=== PATIENT | female | born 1995 | race Caucasian/White ===

== ENCOUNTER 2019-07-04 14:15 | Emergency (ER) | payer OTHER ==
[2019-07-04 14:33] VITALS: BP 120/89
--- NOTE | 2019-07-04 14:41 | UC ---
UC General HPI - HPI Summary HPI Summary: wednesday, pt had some n/v. last pm developed a sore throat. this am, some diarrhea. also notes some while inside her R cheek. - History of Current Complaint Chief Complaint: UCGeneralIllness Stated Complaint: SORE THROAT DIARRHEA Time Seen by Provider: 07/04/19 14:35 Hx Obtained From: Patient Hx Last Menstrual Period: 06/03/19 Onset/Duration: Gradual Onset Timing: Constant Pain Intensity: 7 Associated Signs & Symptoms: Negative: Abdominal Pain, Fever - Allergy/Home Medications Allergies/Adverse Reactions: Allergies Allergy/AdvReac Type Severity Reaction Status Date / Time Penicillins Allergy Vomiting Verified 03/21/19 13:30 sulfamethoxazole Allergy Swelling Verified 03/21/19 13:30 [From Bactrim] Of Face,Lips,& Throat Tetracyclines Allergy Vomiting Verified 03/21/19 13:30 trimethoprim [From Bactrim] Allergy Swelling Verified 03/21/19 13:30 Of Face,Lips,& Throat adhesives Allergy Rash And Uncoded 03/21/19 13:30 Itching environmental Allergy Eyes Uncoded 03/21/19 13:30 Itchy/Swollen/Red/Watery NSAIDS Allergy kidney Uncoded 03/21/19 13:30 problems Home Medications: Home Medications Venlafaxine CAP (NF) [Effexor CAP (NF)] 75 mg PO DAILY 07/04/19 [History Confirmed 07/04/19] PMH/Surg Hx/FS Hx/Imm Hx Psychological History: Depression - Surgical History Surgical History: Yes Surgery Procedure, Year, and Place: Ureter stent or stents - Family History Known Family History: Negative: Diabetes - Social History Alcohol Use: Rare Substance Use Type: Excessive Caffeine Smoking Status (MU): Former Smoker When Did the Patient Quit Smoking/Using Tobacco: 02/23/19 Review of Systems All Other Systems Reviewed And Are Negative: No Constitutional: Negative: Fever, Fatigue ENT: Positive: Sore Throat. Negative: Ear Ache, Sinus Congestion Respiratory: Negative: Shortness Of Breath, Cough Gastrointestinal: Negative: Abdominal Pain Genitourinary: Negative: Dysuria Physical Exam Triage Information Reviewed: Yes Appearance: Well-Appearing Vital Signs: Initial Vital Signs Temp 98.5 F 07/04/19 14:25 Pulse 89 07/04/19 14:25 Resp 16 07/04/19 14:25 BP 120/89 07/04/19 14:25 Pulse Ox 100 07/04/19 14:25 Vital Signs Reviewed: Yes Eyes: Positive: Conjunctiva Clear ENT: Positive: Pharyngeal erythema, TMs normal, Other - White palques inside R cheek that scrape off on tongue depressor.. Negative: Nasal congestion, Nasal drainage Neck: Positive: Supple, Nontender, No Lymphadenopathy Respiratory: Positive: Lungs clear, Normal breath sounds Cardiovascular: Positive: RRR, No Murmur Abdomen Description: Positive: Nontender, No Organomegaly, Soft Bowel Sounds: Positive: Present Neurological: Positive: Alert Psychological: Positive: Age Appropriate Behavior Skin Exam: Normal Diagnostics - Laboratory Lab Results: rapid strep=negative. [id number] Course/Dx - Diagnoses Provider Diagnosis: Pharyngitis, Thrush, oral, Diarrhea Discharge ED - Sign-Out/Discharge Documenting (check all that apply): Patient Departure All imaging exams completed and their final reports reviewed: No Studies - Discharge Plan Condition: Stable Disposition: HOME Prescriptions: Nystatin SUSPENSION* 500,000 units .SEE ORDER QID 7 Days #140 ml Patient Education Materials: Pharyngitis (ED), Oral Candidiasis (ED), Acute Diarrhea (ED) Referrals: FABRICIO Grier [Medical Doctor] - 5 Days - Billing Disposition and Condition Condition: STABLE Disposition: Home
== END 2019-07-04 15:10 | disposition home or self-care (01) ==
LOC: UCCORT 14:15
DX: J02.9 Acute pharyngitis, unspecified (principal); B37.0 Candidal stomatitis; R19.7 Diarrhea, unspecified; Z88.0 Allergy status to penicillin; Z88.1 Allergy status to other antibiotic agents; F32.9 Major depressive disorder, single episode, unspecified; Z87.891 Personal history of nicotine dependence
CPT/HCPCS: 87651; 99212; G0463

== ENCOUNTER 2019-10-22 11:26 | Emergency (ER) | payer OTHER ==
[2019-10-22 12:03] VITALS: BP 132/97
--- NOTE | 2019-10-22 12:15 | UC ---
UC General HPI - HPI Summary HPI Summary: Patient is 24 year old , who present today to the urgent care for confirming . Today she reports that she woke up w/ nausea today; emesis x1 this morning- nonbilious nonbloody. Able to keep fluids down. Yesterday took 2 pregnacy tests that came back positive. LMP 09/17/19. Also some generalized abdominal pain. She has a history of anxiety and depression and a month ago , her primary care doctor changed dose of Effexor from 37.5 to 75 mg and that did not work very well for her and she felt like hurting herself at that time so the medication was returned to 37.5 mg. Upon further discussions overall she feels that she is feeling sad but has no thoughts of hurting herself or hurting someone else. She is wearing here with her fianc and she reports that a few months back there were trying to get but not at this time. She took the last dose of Effexor today morning - History of Current Complaint Chief Complaint: UCRespiratory Stated Complaint: VERIFICATION Time Seen by Provider: 10/22/19 12:03 Hx Obtained From: Patient Hx Last Menstrual Period: 09/17/19 Pain Intensity: 0 - Allergy/Home Medications Allergies/Adverse Reactions: Allergies Allergy/AdvReac Type Severity Reaction Status Date / Time Penicillins Allergy Vomiting Verified 10/22/19 11:54 sulfamethoxazole Allergy Swelling Verified 10/22/19 11:54 [From Bactrim] Of Face,Lips,& Throat Tetracyclines Allergy Vomiting Verified 10/22/19 11:54 trimethoprim [From Bactrim] Allergy Swelling Verified 10/22/19 11:54 Of Face,Lips,& Throat adhesives Allergy Rash And Uncoded 10/22/19 11:54 Itching environmental Allergy Eyes Uncoded 10/22/19 11:54 Itchy/Swollen/Red/Watery NSAIDS Allergy kidney Uncoded 10/22/19 11:54 problems Home Medications: Home Medications ALPRAZolam TAB* [Xanax TAB*] 0.25 mg PO Q6H PRN 10/22/19 [History Confirmed ] Cyclobenzaprine TAB* [Flexeril 10 MG TAB*] 1 tab QPM PRN 10/22/19 [History Confirmed 10/22/19] PMH/Surg Hx/FS Hx/Imm Hx - Additional Past Medical History Additional PMH: Past Medical History : Limited, depression, renal stone, polycystic kidney and ovarian disease Past Surgical History: kidney stones, polycystic kidneys and ovaries, migraine, possible brain aneurysm, vertigo, anxiety,depression 06/12/1994-[id number] brain aneurysm Family History : non contributory Social History : Rare alcohol, former smoker, no drug use. Previously Healthy: Yes - Surgical History Surgical History: Yes Surgery Procedure, Year, and Place: Ureter stent or stents - Family History Known Family History: Positive: Non-Contributory Negative: Diabetes - Social History Alcohol Use: Rare Substance Use Type: None Smoking Status (MU): Former Smoker When Did the Patient Quit Smoking/Using Tobacco: 02/23/19 Review of Systems All Other Systems Reviewed And Are Negative: Yes Constitutional: Positive: Negative Skin: Positive: Negative Eyes: Positive: Negative ENT: Positive: Negative Respiratory: Positive: Negative Cardiovascular: Positive: Negative Gastrointestinal: Positive: Abdominal Pain, Vomiting - One episode of nonbilious nonbloody vomiting, Nausea Genitourinary: Positive: Negative Motor: Positive: Negative Neurovascular: Positive: Negative Musculoskeletal: Positive: Negative Neurological: Positive: Negative Psychological: Positive: Negative Is Patient Immunocompromised?: No Physical Exam - Summary Physical Exam Summary: Physical Exam: Const: Appears well. No signs of apparent distress present. Alert and oriented x 3. Musculo: Walks with a normal gait. Head/Face: Atraumatic, normocephalic on inspection. Eyes: EOMI and PERRLA in both eyes. Conjunctivae clear. No discharge noted ENT: Hearing normal, TM normal appearing on the left side and, wax noted on the right side but slight visualization of the right tympanic membrane appears normal No tenderness to palpation on maxillary and frontal sinus. No pharyngeal erythema or exudates . Uvula is midline. No cervical or submandibular lymphadenopathy noted. Respiratory: Respirations are unlabored. Lungs clear to auscultation bilaterally, no wheezing , rhonchi or rales noted . CVS: Regular rate and Rhythm, S1S2 normal , no murmurs identified. Extremities: Peripheral circulation is grossly normal. Pulses 2+ Abdomen : Soft mild generalized tenderness is noted throughout abdomen, nondistended , Bowel sounds present . No guarding , rebound tenderness or rigidity noted. Skin: No lesions or rash located on the upper extremities or on the lower extremities. Neuro: Cranial nerves II to XII intact, motor and sensory intact. DTR Intact bilaterally. Mood is normal. Affect is normal. Triage Information Reviewed: Yes Vital Signs: Initial Vital Signs Temp 98 F 10/22/19 11:56 Pulse 98 10/22/19 11:56 Resp 16 10/22/19 11:56 BP 132/97 10/22/19 11:56 Pulse Ox 100 10/22/19 11:56 Vital Signs Reviewed: Yes Course/Dx - Course Course Of Treatment: Urine test: Positive She is currently on Effexor and we discussed that it's a category C medication during . She took her dose in the morning today . Currently she did not have any thoughts of suicidal or homicidal ideations. She feels that she is status slightly sad. We discussed that she should call her primary care doctor today to schedule an appointment with her tomorrow to discuss about the medications before taking the next dose tomorrow. We also discussed that she should follow-up with her [employer]PUTER SCIENCE TE[employer]ER, Dr. Pathak in [place]. We discussed that her generalized abdominal pain with some nausea can be secondary to , viral gastroenteritis , or her anxiety. We discussed that she will monitor for any worsening of her symptoms for now. She expressed understanding - Diagnoses Provider Diagnosis: test positive Discharge ED - Sign-Out/Discharge Documenting (check all that apply): Patient Departure All imaging exams completed and their final reports reviewed: No Studies - Discharge Plan Condition: Stable Disposition: HOME Patient Education Materials: (ED) Forms: *Work Release Referrals: No Primary Care Phys,NOPCP [Primary Care Provider] - Additional Instructions: Your urine test is positive Follow up with your primary care doctor( Dr. Abeba Rob) tomorrow in regards to the effexor. Please call your COMPUTER SCIENCE TEACHER doctor, Dr. Pathak in [place] to set up an appointment. He is Patients blood pressure slightly high in Urgent care today , plan follow up with PCP for better control Return to Urgent care / ER if symptoms get worse. - Billing Disposition and Condition Condition: STABLE Disposition: Home
== END 2019-10-22 12:44 | disposition home or self-care (01) ==
LOC: UCCORT 11:26
DX: Z32.01 Encounter for pregnancy test, result positive (principal); Z87.891 Personal history of nicotine dependence; Z88.6 Allergy status to analgesic agent; Z91.09 Other allergy status, other than to drugs and biological substances; Z88.2 Allergy status to sulfonamides; Z88.1 Allergy status to other antibiotic agents; Z88.0 Allergy status to penicillin
CPT/HCPCS: 84702; 99211; G0463

== ENCOUNTER 2019-12-02 11:02 | Emergency (ER) | payer OTHER ==
[2019-12-02 12:18] VITALS: BP 127/84
--- NOTE | 2019-12-02 12:53 | UC ---
Throat Pain/Nasal Harish HPI - HPI Summary HPI Summary: Pt presents with c/o "facial pain", concern for dental abscess or sinus infection. Pt is 11 weeks , c/o weakness and "feeling awful", is currently being treated for C-Difficile and is taking Flagyl. Pt states she still has diarrhea. - History of Current Complaint Chief Complaint: UCGeneralIllness Stated Complaint: SINUSES/CURTIS/TOOTH COMP Hx Obtained From: Patient Hx Last Menstrual Period: 09/17/19 ?: Yes - 11 weeks Onset/Duration: Sudden Onset, Still Present, Worse Since Severity: Moderate Pain Intensity: 6 Associated Signs & Symptoms: Positive: Sinus Discomfort - Epiglottits Risk Factors Epiglottis Risk Factors: Negative - Allergies/Home Medications Allergies/Adverse Reactions: Allergies Allergy/AdvReac Type Severity Reaction Status Date / Time Penicillins Allergy Vomiting Verified 12/02/19 12:18 sulfamethoxazole Allergy Swelling Verified 12/02/19 12:18 [From Bactrim] Of Face,Lips,& Throat Tetracyclines Allergy Vomiting Verified 12/02/19 12:18 trimethoprim [From Bactrim] Allergy Swelling Verified 12/02/19 12:18 Of Face,Lips,& Throat adhesives Allergy Rash And Uncoded 12/02/19 12:18 Itching environmental Allergy Eyes Uncoded 12/02/19 12:18 Itchy/Swollen/Red/Watery NSAIDS Allergy kidney Uncoded 12/02/19 12:18 problems Home Medications: Home Medications [id number]/Iron Fum/Folic/Docusate [ 19] 1 tab PO DAILY 12/02/19 [History Confirmed 12/02/19] metroNIDAZOLE [Metronidazole] 250 mg PO TID 12/02/19 [History Confirmed 12/02/19 ] PMH/Surg Hx/FS Hx/Imm Hx Previously Healthy: Yes GI/ History: Other - current hx of c-Difficile - Surgical History Surgical History: Yes Surgery Procedure, Year, and Place: Ureter stent or stents - Family History Known Family History: Positive: Non-Contributory Negative: Diabetes - Social History Occupation: Employed Full-time Lives: With Family Alcohol Use: Rare Substance Use Type: None Smoking Status (MU): Former Smoker Have You Smoked in the Last Year: No When Did the Patient Quit Smoking/Using Tobacco: 02/23/19 - Immunization History Hx Tetanus, Diphtheria Vaccination: Yes Vaccination Up to Date: Yes Review of Systems All Other Systems Reviewed And Are Negative: Yes Constitutional: Positive: Chills, Fatigue Skin: Positive: Negative Eyes: Positive: Negative ENT: Positive: Dental Pain, Sinus Congestion, Sinus Pain/Tenderness Respiratory: Positive: Negative Cardiovascular: Positive: Negative Gastrointestinal: Positive: Diarrhea Genitourinary: Positive: Negative Motor: Positive: Negative Neurovascular: Positive: Negative Musculoskeletal: Positive: Myalgia Neurological: Positive: Headache Psychological: Positive: Negative Is Patient Immunocompromised?: No Physical Exam Triage Information Reviewed: Yes Appearance: Ill-Appearing Vital Signs: Initial Vital Signs Temp 97.3 F 12/02/19 12:14 Pulse 85 12/02/19 12:14 Resp 18 12/02/19 12:14 BP 127/84 12/02/19 12:14 Pulse Ox 100 12/02/19 12:14 Vital Signs Reviewed: Yes Eye Exam: Normal ENT: Positive: Hearing grossly normal Dental Exam: Normal Neck exam: Normal Respiratory: Positive: No respiratory distress Musculoskeletal Exam: Normal Neurological Exam: Normal Psychological Exam: Normal Psychological: Positive: Other: - During PE and discussion about recommendation to seek a higher level of care, pt became agitated, began to swaer at me, stating that she will not go to the ER, that "Why the F--- didn't someone tell her that before I walked in. Throughout the conversation about seeking further testing and evaluation the pt was verbally agitated and swore at me. Throat Pain/Nasal Course/Dx - Course Course Of Treatment: Pt was recommended to seek care at closest ER. - Differential Dx/Diagnosis Differential Diagnosis/HQI/PQRI: Influenza, Sinusitis Provider Diagnosis: Hx of Clostridium difficile infection, Pain, dental, Congestion of nasal sinus Discharge ED - Sign-Out/Discharge Documenting (check all that apply): Patient Departure All imaging exams completed and their final reports reviewed: No Studies - Discharge Plan Condition: Stable Disposition: HOME-RECOMMEND TO ED Patient Education Materials: Viral Syndrome (ED) Referrals: [facility]ERR[facility] [Outside] - If Needed No Primary Care Phys,NOPCP [Primary Care Provider] - Additional Instructions: It is our recommendation that you seek care at the closest emergency room for further testing and evaluation. You have indicated to us that you are currently being treated for an infectious disease. To provide you with the best possible treatment and outcomes, it is our recommendation that you have further medical treatment. - Billing Disposition and Condition Condition: STABLE Disposition: Home-Recommend to ED - Attestation Statements Provider Attestation: I was available for consult. This patient was seen by the BRANDON. The patient was not presented to , seen by or examined by me -Noreen Bravo MD
== END 2019-12-02 13:00 | disposition home health service (06) ==
LOC: UCCORT 11:02
DX: K08.89 Other specified disorders of teeth and supporting structures (principal); R09.81 Nasal congestion; Z86.19 Personal history of other infectious and parasitic diseases; R45.1 Restlessness and agitation; Z88.0 Allergy status to penicillin; Z88.2 Allergy status to sulfonamides; Z88.1 Allergy status to other antibiotic agents; Z88.8 Allergy status to other drugs, medicaments and biological substances; Z91.09 Other allergy status, other than to drugs and biological substances; Z87.891 Personal history of nicotine dependence
CPT/HCPCS: 99212; G0463